=== PATIENT | female | born 1990 | race Caucasian/White ===

== ENCOUNTER → 2017-09-28 | Outpatient (CLI) | payer BC ==
[~2017-09-28] VITALS: Ht 165.1 cm; Wt 62.4 kg
[~2017-09-28] MED LIST: ASPIR 8181 M1 PO; ENDOCET 5-3251 EACH PO; IBUPROFEN800 MG PO; PRENA1 CHEW TA1.4 MG PO; PRENATAL TABLE1 EAC3 PO
[2017-09-28 15:50] VITALS: BP 116/65
== END | disposition home or self-care (01) ==
LOC: IVINF 15:30
DX: O03.9 Complete or unspecified spontaneous abortion without complication (principal); Z67.11 Type A blood, Rh negative
CPT/HCPCS: 96372; J2790

== ENCOUNTER 2018-01-13 20:46 | Emergency (ER) | payer BC ==
[~2018-01-13] VITALS: Ht 165.1 cm; Wt 63.6 kg
[2018-01-13 22:48] VITALS: BP 122/82
== END 2018-01-13 22:48 | disposition home or self-care (01) ==
LOC: EME 20:46
DX: O26.891 Other specified pregnancy related conditions, first trimester (principal); Z3A.01 Less than 8 weeks gestation of pregnancy
CPT/HCPCS: 99281; 99284; J2790